=== PATIENT | male | born 1985 | race Caucasian/White ===

== ENCOUNTER 2017-07-17 22:11 | Emergency (ER) | payer OTHER ==
[~2017-07-17] VITALS: Ht 172.7 cm; Wt 75.0 kg
[2017-07-17 22:26] VITALS: BP 126/86
== END 2017-07-17 23:20 | disposition left against medical advice (07) ==
LOC: ER 22:11
DX: R41.82 Altered mental status, unspecified (principal); Z53.21 Procedure and treatment not carried out due to patient leaving prior to being seen by health care provider